=== PATIENT | female | born 1990 | race Caucasian/White ===

== ENCOUNTER 2017-11-19 23:00 | Emergency (ER) | payer SELFPAY ==
[~2017-11-19] VITALS: Ht 139.7 cm; Wt 69.7 kg
[2017-11-20] MEDS ORDERED: IBUPROFEN 600MG TABLET PO ONE (01:30)
[2017-11-20 02:05] VITALS: BP 141/87
== END 2017-11-20 01:38 | disposition home or self-care (01) ==
LOC: ER 23:00
DX: S80.02XA Contusion of left knee, initial encounter (principal); W19.XXXA Unspecified fall, initial encounter; Y93.89 Activity, other specified; Y92.89 Other specified places as the place of occurrence of the external cause; Y99.8 Other external cause status
CPT/HCPCS: 73562; 81025; 99284

== ENCOUNTER 2019-03-31 18:48 | Emergency (ER) | payer MEDICAID ==
[~2019-03-31] VITALS: Ht 152.4 cm; Wt 68.0 kg
[2019-03-31] MEDS ORDERED: BACITRACIN ZINC OINT UDPKT TOP ONE (22:45)
[2019-03-31] MEDS ORDERED: IBUPROFEN 800MG TABLET PO ONE (22:45)
[2019-04-01] MEDS ORDERED: TETANUS, DIPHTHERIA, PERTUSSIS VAC/PF 0.5ML (>7YR OLD) IM ONE (00:30)
[2019-04-01 00:46] VITALS: BP 130/80
== END 2019-04-01 00:47 | disposition home or self-care (01) ==
LOC: ER 19:05
DX: S62.633A Displaced fracture of distal phalanx of left middle finger, initial encounter for closed fracture (principal); W45.8XXA Other foreign body or object entering through skin, initial encounter; Y93.89 Activity, other specified; Y92.89 Other specified places as the place of occurrence of the external cause; Y99.8 Other external cause status
CPT/HCPCS: 29130; 73130; 99283